=== PATIENT | female | born 1970 | race American Indian/Alaskan Native ===

== ENCOUNTER 2016-08-13 08:17 | Day surgery (SDC) | payer MEDICARE, MEDICAID ==
[2016-07-27 08:46] VITALS: BMI 25.8
[~2016-08-13 08:17] MED LIST: Acetaminophen-Codeine 300/30 mg Tab PO PRN; Dextrose 5%/0.45% NS 1,000 ML IV SCH; Lidocaine 2% w Epi 1:100,000 Inj IJ ONE; Oxymetazoline 0.05% Nasal Spray (30 ml) NS ONE
[2016-08-13] MEDS ORDERED: Midazolam 2 MG/2 ML VIAL ONE (10:41)
[2016-08-13] MEDS ORDERED: Propofol 10 mg/ml Inj (20 ML) ONE (10:41)
[2016-08-13] MEDS ORDERED: Lactated Ringer's 1,000 ML IV ONE ×2 (10:45→11:45)
[2016-08-13] MEDS ORDERED: Rocuronium 10 mg/ml (5 ml) ONE (10:51)
[2016-08-13] MEDS ORDERED: Neostigmine Methylsulfate 3mg/3ml Syringe IV ONE (12:01)
[2016-08-13] MEDS ORDERED: HYDROmorphone 0.5 mg/0.5 ml ISec IVP PRN (12:21)
[2016-08-13 16:56] VITALS: BP 113/71; PULSE 73; RESP 18; TEMP 97.9; O2SAT 100
--- NOTE | 2016-08-17 16:27 | OP ---
PROCEDURE DATE: 08/13/2016 PREOPERATIVE DIAGNOSES: Deviated septum, enlarged turbinates, sinusitis. POSTOPERATIVE DIAGNOSES: Deviated septum, enlarged turbinates, sinusitis. PROCEDURE: Septoplasty, endoscopic bilateral maxillary antrostomy, endoscopic bilateral ethmoidectom y, endoscopic bilateral sphenoidotomy, endoscopic bilateral inferior turbinate reduction. 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 DESCRIPTION OF PROCEDURE: The patient was brought in room, placed in supine position. Anesthesia wa s initiated through an ET tube. Afrin-soaked pledgets were inserted into the nasal cavity and remain ed there for at least 5 minutes, then removed. The patient was draped in the usual manner. Navigati on was set up and used throughout the case in order to ensure that the orbit and skull base was not e ntered. The septum was injected with lidocaine with epinephrine on both sides. A Lloyd's incision was made on the left and then mucoperichondrial flap was raised. A vertical incision was made in th e cartilage leaving a 1.5 cm anterior and superior strut and a mucoperichondrial flap was raised on t he other side. Deviated portion of the bone and cartilage are removed using chisel and forceps. Jan lting suture was used to suture the 2 flaps together and close the [place]'s incision. Next, a 0 deg ree scope was inserted into the nasal cavity. The inferior turbinates were noted to be enlarged and reduced in size using straight scissors going from an inferior to superior, anterior to posterior dir ection on both sides, first on the left and then on the right. Bleeding was controlled using suction cautery on both sides. Attention was turned to the left. The middle turbinate was injected with li docaine with epinephrine and medialized. Uncinate process was medialized using a [place] elevator and removed using forceps. The ethmoid bulla was entered inferomedially using the debrider going posteri rosie to the basal lamella, then anteriorly and superiorly until the ethmoid bulla was removed. The b willam lamella was entered. Posterior ethmoid cells were entered and opened. The skull base was ident ified and followed anteriorly all the way to the area of the anterior ethmoid air cells. The sphenoi d antrum was noted to be stenosed and opened using forceps. Curve suction hooked up to navigation wa s used to locate the maxillary antrum which was noted to be stenosed and opened using forceps. Atten tion was turned to the other side. The middle turbinate was injected with lidocaine with epinephrine and medialized. The uncinate process was medialized using a [place] elevator and removed using forcep s. Ethmoid bulla was entered using debrider inferomedially going posteriorly to the basal lamella an d then anteriorly and superiorly until the ethmoid bulla was removed. Basal lamella was entered. Po sterior ethmoid cells were entered and opened. Skull base was identified and followed anteriorly all the way to the area of the anterior ethmoid air cells. The sphenoid antrum was noted to be stenosed and opened using forceps. Curve suction hooked up to navigation was used to locate the maxillary an trum which was noted to be stenosed and opened using forceps. Bleeding was controlled on both sides using Afrin-soaked pledgets and suction cautery. Splints were placed. ____ were placed. The patien t was taken off anesthesia and taken to recovery room in stable manner. Kvng Dougherty MD cc: [id number] TT: 08/17/2016 16:26:59
== END 2016-08-13 16:59 | disposition home or self-care (01) ==
LOC: C.SDS 08:17
PROVIDERS: ATTEND Otolaryngology
DX: J34.2 Deviated nasal septum (principal); J34.3 Hypertrophy of nasal turbinates; J32.0 Chronic maxillary sinusitis; J32.2 Chronic ethmoidal sinusitis; J32.3 Chronic sphenoidal sinusitis
CPT/HCPCS: 30520; 31255; 31256; 31287; 88304; J1885; J2250; J2405; J2704; J2710; J3010; J7120

== ENCOUNTER 2018-09-26 11:35 | Outpatient (CLI) | payer MEDICARE, MEDICAID | END 2018-09-26 11:36 | disposition home or self-care (01) | LOC: C.MRIC 11:35 | DX: K85.90 Acute pancreatitis without necrosis or infection, unspecified (principal) ==

== ENCOUNTER 2018-09-29 12:35 | Outpatient (CLI) | payer MEDICARE, MEDICAID | END 2018-09-29 12:36 | disposition home or self-care (01) | LOC: C.CTH 12:36 | DX: J01.90 Acute sinusitis, unspecified (principal) ==